=== PATIENT | female | born 1985 | race African-American/Black ===

== ENCOUNTER 2019-03-29 10:47 | Emergency (ER) | payer MEDICAID ==
[2019-03-29] MEDS ORDERED: DIPHENHYDRAMINE HCL 50 MG/ML VIAL IV ONE (13:17)
[2019-03-29] MEDS ORDERED: PROCHLORPERAZINE EDISYLATE INJ 10 MG/2 ML VIAL IV ONE (13:17)
[2019-03-29] MEDS ORDERED: KETOROLAC TROMETHAMINE INJ/PF 30 MG/1 ML SDV IV ONE (13:17)
--- NOTE | 2019-03-29 13:22 | ER Document Report ---
ED Medical Screen (RME) - General Chief Complaint: Headache Stated Complaint: HEADACHE Time Seen by Provider: 03/29/19 13:16 TRAVEL OUTSIDE OF THE [place] IN LAST 30 DAYS: No - HPI Notes: 03/29/19 13:22 Patient is a 33-year-old female with a history of tonic recurrent migraines and headaches who presents complaining of a headache that started 3 days ago near the left eye. Patient states that her eye started getting red at that time as well. She has had tearing associated and soreness. Patient states that this headache does resemble previous, but is not improving with her conservative measures. + light sensitivity. Pt feels as though there could be irritation to the eye itself. She does wear contacts, but has not been able to wear the one in her left eye for 3 days. Denies any fever, head injury, neck pain, changes in speech/mentation/hearing, URI, sore throat, chest pain, palpitations, syncope, cough, shortness of breath, wheeze, dyspnea, abdominal pain, vomiting/diarrhea, urinary retention, dysuria, hematuria, loss of control of bowel or bladder, numbness/tingling, saddle anesthesia, muscle paralysis/weakness, or rash. I have treated and performed a rapid initial assessment of this patient. A comprehensive ED assessment and evaluation of the patient, analysis of test results and completion of medical decision making process will be conducted by additional ED providers. PHYSICAL EXAMINATION: GENERAL: Well-appearing, well-nourished and in no acute distress. A&Ox4. Answers questions appropriately. Vitals: HR 80 during exam, not sure why reported at 124 initially. Left eye: injected. PERRLA, EOMI b/l. + tearing. LUNGS: Breath sounds clear to auscultation bilaterally and equal. No wheezes rales or rhonchi. HEART: Regular rate and rhythm without murmurs, rubs, gallops. Extremities: No cyanosis, clubbing, or edema b/l. NEUROLOGICAL: Normal speech, normal gait. Cranial nerves grossly intact. PSYCH: Normal mood, normal affect. - Related Data Allergies/Adverse Reactions: No Known Allergies Allergy (Verified 03/29/19 10:49) Past Medical History - Past Medical History Cardiac Medical History: Reports: Hx Hypertension - no tx, Hx Pulmonary Embolism - Immunizations Immunizations up to date: No Hx Diphtheria, Pertussis, Tetanus Vaccination: Yes Physical Exam - Vital signs Vitals: Temp Pulse Resp BP Pulse Ox 98.8 F 129 H 16 180/117 H 99 03/29/19 10:51 03/29/19 10:51 03/29/19 10:51 03/29/19 10:51 03/29/19 10:51 Course - Vital Signs Vital signs: Temp Pulse Resp BP Pulse Ox 98.8 F 129 H 16 180/117 H 99 03/29/19 10:51 03/29/19 10:51 03/29/19 10:51 03/29/19 10:51 03/29/19 10:51
[2019-03-29] MEDS ORDERED: TETRACAINE HCL 0.5% OPH SOLN 4 ML OS ONE (13:26)
[2019-03-29] MEDS ORDERED: CLONIDINE HCL 0.1 MG TABLET PO ONE (13:26)
--- NOTE | 2019-03-29 16:00 | ER Document Report ---
ED Headache - General Chief Complaint: Headache Stated Complaint: HEADACHE Time Seen by Provider: 03/29/19 13:16 Primary Care Provider: VIVEK SPANN DO [ACTIVE STAFF] - Follow up as needed Notes: Patient is a 33-year-old female with a history of migraines who presents to the emergency department with a chief complaint of headache. Patient states that about 3 days ago she did develop a migraine. Patient states that the pain was located in the back of her left eye. Patient states it did feel similar to her previous migraines although the BC powder and Ibuprofen treatment at home was not helping. Reports nausea but has not had any vomiting. Patient states having sensitivity in both eyes. Patient states she does wear nonprescription contacts in both eyes. Patient states that around the time of the migraine that she did also feel like something was in her left eye. Patient states she has been able to wear the contact in the left eye due to redness, excessive tearing, severe pain and no swelling to the left eye. She has continued to wear the contact in the right eye and reports drainage from both. TRAVEL OUTSIDE OF THE [place] IN LAST 30 DAYS: No - Related Data Allergies/Adverse Reactions: No Known Allergies Allergy (Verified 03/29/19 10:49) Past Medical History - General Information source: Patient - Social History Smoking Status: Unknown if Ever Smoked Cigarette use (# per day): No Chew tobacco use (# tins/day): No Frequency of alcohol use: None Drug Abuse: None Family History: Reviewed & Not Pertinent, Hypertension - states has been told her blood pressure was high in the past - has not been placed on medications Patient has suicidal ideation: No Patient has homicidal ideation: No - Past Medical History Cardiac Medical History: Reports: Hx Hypertension - no tx, Hx Pulmonary Embolism Pulmonary Medical History: Reports: None EENT Medical History: Reports: None Neurological Medical History: Reports: Hx Migraine Endocrine Medical History: Reports: None Renal/ Medical History: Reports: None. Denies: Hx Peritoneal Dialysis Malignancy Medical History: Reports: None GI Medical History: Reports: None Musculoskeletal Medical History: Reports None Skin Medical History: Reports None Psychiatric Medical History: Reports: None Traumatic Medical History: Reports: None Infectious Medical History: Reports: None Surgical Hx: Negative - Immunizations Immunizations up to date: No Hx Diphtheria, Pertussis, Tetanus Vaccination: Yes Review of Systems - Review of Systems Constitutional: No symptoms reported EENT: See HPI Cardiovascular: No symptoms reported Respiratory: No symptoms reported Gastrointestinal: See HPI Genitourinary: No symptoms reported Female Genitourinary: No symptoms reported Musculoskeletal: No symptoms reported Skin: No symptoms reported Hematologic/Lymphatic: No symptoms reported Neurological/Psychological: See HPI Physical Exam - Vital signs Vitals: Temp Pulse Resp BP Pulse Ox 98.8 F 129 H 16 180/117 H 99 03/29/19 10:51 03/29/19 10:51 03/29/19 10:51 03/29/19 10:51 03/29/19 10:51 Interpretation: Hypertensive - Notes Notes: GENERAL: Well-appearing, well-nourished and in no acute distress. HEAD: Atraumatic, normocephalic. EYES: Pupils equal round and reactive to light 2 mm bilaterally, no opacities noted with penlight, positive injection bilaterally, no fluorescein uptake, no hyphema, no ciliary flush, extraocular movements intact, sclera reddened, conjunctiva are reddened. Clear tears noted bilaterally. Left eye pressure 30/35 with 95% confidence. Right eye pressure 24/25 with 95% components. ENT: TMs normal, nares patent, oropharynx clear without exudates. Moist mucous membranes. NECK: Normal range of motion, supple without lymphadenopathy or JVD. LUNGS: Breath sounds clear to auscultation bilaterally and equal. No wheezes rales or rhonchi. HEART: Regular rate and rhythm without murmurs, rubs or gallops. ABDOMEN: Soft, nontender, normoactive bowel sounds. No guarding, no rebound. No masses appreciated. BACK: No cervical, thoracic, lumbar midline tenderness. No saddle anesthesia, normal distal neurovascular exam. GENITOURINARY: Deferred. EXTREMITIES: Normal range of motion, no pitting or edema. No clubbing or cyanosis. NEUROLOGICAL: Cranial nerves II through XII grossly intact. Normal speech, normal gait. PSYCH: Normal mood, normal affect. SKIN: Warm, Dry, normal turgor, no rashes or lesions noted. - HEENT Visual acuity- Right eye: 20/50 Visual acuity- Left eye: 24/40 Visual acuity- Both eyes: 20/40 Corrective lenses worn: Yes - done with sunglasses pt said the room was too bright Course - Re-evaluation Re-evalutation: Initially on examination patient had already received IV fluids and medications for her migraine. Patient states that her migraine headache is almost gone as it is a 1 out of 5. Patient continues to complain of left eye pain and tearing to the left eye. Patient denies pain to the right eye. Is alert and oriented and in no acute distress. I will perform an eye examination. Visual acuity had been performed in triage. Patient does have a contact lens in the right eye in which I told the patient to remove. Did inquire the patient about her past medical history. Patient states she has been told she had high blood pressure in the past but does not take medication. Patient states she does not see a primary care physician. 03/29/19 18:00 I did speak with Dr. Spann (electrophonic engineer ophthalmology) to explain patient's presentation and complaint of left eye pain. I did inform him that the left eye pressures were 30 and 35 with a 95% confidence level. Also informed him that the right eye had elevated pressures at 24 and 25 with a 95% confidence level. He states that he would like to see the patient in the office tomorrow and the patient's contact information was given to him. He states not to prescribe any medications as he is not sure what is going on. I also informed him of the visual acuity result. 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 I will provide her with the office and contact information. Patient verbalized understanding. Will return if worsening symptoms. - Vital Signs Vital signs: Temp Pulse Resp BP Pulse Ox 98.1 F 74 16 142/92 H 100 03/29/19 17:58 03/29/19 17:58 03/29/19 10:51 03/29/19 17:58 03/29/19 17:58 Discharge - Discharge Clinical Impression: Left eye pain Migraine Qualifiers: Migraine type: unspecified Status migrainosus presence: without status migrainosus Intractability: not intractable Qualified Code(s): G43.909 - Migraine, unspecified, not intractable, without status migrainosus Condition: Stable Disposition: HOME, SELF-CARE Additional Instructions: Today you were seen in the emergency department for migraine and left eye pain. We did treat your migraine headache and report feeling much better. The pressures in your eyes were elevated. The left eye was worse than the right. I did speak with Dr. Spann at [facility] who will call you tomorrow morning an appointment as he would like to see you tomorrow. At this time you do not need a prescription as we are unsure what is going on with your eye. Please return to the emergency department for worsening signs or symptoms to include decreased visual acuity, visual changes, severe headache, or any other concerning signs or symptoms. Do not wear contact lenses or put anything into the eye. Migraine Headache The physician feels that your symptoms are due to a migraine attack. Migraines are caused by changes in the blood vessels of the head. Arteries go into spasm, often causing warning symptoms that a headache may begin soon. As the spasm goes away, the vessels dilate and throb, causing the pounding pain of a migraine headache. Migraines often cause nausea and vomiting. The treatment of headaches varies with severity and cause of pain. Not all headaches need pain shots -- in fact, there is evidence that using narcotics for headaches may make them worse in the long run. The physician will determine the therapy that's in your best interest for this particular headache. Medications are available that may prevent migraines, or stop them as they first occur. If one medication is not helpful, try another. If migraines are frequent, be patient -- follow the doctor's recommendations. Call the physician if you are worsening, or if new symptoms arise. Forms: Elevated Blood Pressure, Return to Work Referrals: VIVEK SPANN, DO [ACTIVE STAFF] - Follow up as needed
[2019-03-29] MEDS ORDERED: TETRACAINE HCL 0.5% OPH SOLN 4 ML ONE (16:23)
[2019-03-29 17:59] VITALS: BP 142/92
== END 2019-03-29 18:35 | disposition home or self-care (01) ==
LOC: ER 10:47
DX: G43.909 Migraine, unspecified, not intractable, without status migrainosus (principal); R11.0 Nausea; H57.12 Ocular pain, left eye; I10 Essential (primary) hypertension
CPT/HCPCS: 99283; 96374; 96375; J3490; J1200; J0780

== ENCOUNTER 2019-09-11 00:27 | Emergency (ER) | payer MEDICAID ==
[2019-09-11] MEDS ORDERED: PENICILLIN V POTASSIUM 500 MG TABLET PO ONE (03:00)
[2019-09-11] MEDS ORDERED: HYDROCODONE/ACETAMINOPHEN 5-325 MG (6 TAB/ER DISP) PO PRN (03:00)
--- NOTE | 2019-09-11 03:02 | ER Document Report ---
HPI - HPI Time Seen by Provider: 09/11/19 02:38 Pain Level: 5 Context: Patient is a 34-year-old female that comes to the emergency department for chief complaint of dental pain. She states that she has had severe worsening pain over the past 2 days. She has a known fracture over the right lower posterior molar area. She states that she has started to have swelling on the right side of the face. She denies difficulty swallowing or breathing, fever, neck pain, or any other complaints. She has a dentist and is supposed to get extractions performed, this is 10 days away. - REPRODUCTIVE Reproductive: DENIES: : Past Medical History - General Information source: Patient - Social History Smoking Status: Never Smoker Frequency of alcohol use: None Drug Abuse: None Lives with: Family Family History: Reviewed & Not Pertinent, Hypertension - states has been told her blood pressure was high in the past - has not been placed on medications Patient has suicidal ideation: No Patient has homicidal ideation: No - Past Medical History Cardiac Medical History: Reports: Hx Hypertension - no tx, Hx Pulmonary Embolism Neurological Medical History: Reports: Hx Migraine Renal/ Medical History: Denies: Hx Peritoneal Dialysis - Immunizations Immunizations up to date: No Hx Diphtheria, Pertussis, Tetanus Vaccination: Yes Vertical Provider Document - CONSTITUTIONAL General Appearance: WD/WN. negative: No Apparent Distress - Patient appears mildly uncomfortable, holding her right jaw - INFECTION CONTROL TRAVEL OUTSIDE OF THE [place] IN LAST 30 DAYS: No - HEENT HEENT: Atraumatic, Normocephalic, PERRLA. negative: Conjuctival Injection, Pharyngeal Exudate, Pharyngeal Tenderness, Pharyngeal Erythema, Tympanic Membrane Red, Tympanic Membrane Bulging Mouth Diagram: 1 - Fractured molar with surrounding erythema and tenderness but no noted induration, fluctuance, or abscess. Unremarkable oropharyngeal exam otherwise - NECK Neck: Normal Inspection, Supple. negative: Lymphadenopathy-Left, Lymphadenopathy-Right - RESPIRATORY Respiratory: Breath Sounds Normal, No Respiratory Distress - CARDIOVASCULAR Cardiovascular: Regular Rate, Regular Rhythm - GI/ABDOMEN Gastrointestinal: Abdomen Soft, Abdomen Non-Tender - BACK Back: Normal Inspection - MUSCULOSKELETAL/EXTREMETIES Musculoskeletal/Extremeties: MAKEMAL, FROM, Non-Tender - NEURO Level of Consciousness: Awake, Alert, Appropriate Motor/Sensory: No Motor Deficit, No Sensory Deficit - DERM Integumentary: Warm, Dry, No Rash Course - Vital Signs Vital signs: Temp Pulse Resp BP Pulse Ox 98.6 F 100 20 153/98 H 99 09/11/19 00:41 09/11/19 00:41 09/11/19 00:41 09/11/19 00:41 09/11/19 00:41 Discharge - Discharge Clinical Impression: Pain, dental, Dental infection Condition: Stable Disposition: HOME, SELF-CARE Instructions: Oral Narcotic Medication ([facility]) Additional Instructions: Your evaluation is consistent with a dental infection. Take the antibiotics as prescribed to completion. Follow-up with your dentist for additional evaluation and management or this will continue to occur. Return for any concerning or worsening symptoms including increased swelling of the face. Prescriptions: Penicillin V Potassium [Penicillin Vk 500 mg Tablet] 500 mg PO BID #20 tablet Forms: Return to Work
[2019-09-11 03:26] VITALS: BP 177/107
== END 2019-09-11 03:21 | disposition home or self-care (01) ==
LOC: ER 00:27
DX: K08.89 Other specified disorders of teeth and supporting structures (principal); K04.7 Periapical abscess without sinus; S02.5XXA Fracture of tooth (traumatic), initial encounter for closed fracture; X58.XXXA Exposure to other specified factors, initial encounter; I10 Essential (primary) hypertension
CPT/HCPCS: 99282; J3490

== ENCOUNTER 2020-03-15 10:25 | Emergency (ER) | payer MEDICAID ==
[2020-03-15 10:56] LABS: APPEARANCE,URINE CLEAR; BILIRUBIN,URINE NEGATIVE (NEGATIVE); COLOR,URINE YELLOW; GLUCOSE, URINE NEGATIVE (NEGATIVE); KETONES,URINE NEGATIVE (NEGATIVE); LEUKOCYTE ESTERASE,URINE TRACE (NEGATIVE); NITRITE,URINE NEGATIVE (NEGATIVE); PROTEIN,URINE NEGATIVE (NEGATIVE); URINE SPECIFIC GRAVITY 1.004; UROBILINOGEN,URINE NEGATIVE mg/dL (<2.0)
[2020-03-15 11:03] LABS: ADD MANUAL MICROSCOPIC YES
[2020-03-15 11:04] LABS: RBC,URINE TOO NUMEROUS TO CNT /HPF
[2020-03-15] MEDS ORDERED: KETOROLAC TROMETHAMINE INJ/PF 30 MG/1 ML SDV IV ONE (11:08)
[2020-03-15 11:28] LABS: ABSOLUTE EOSINOPHILS # (AUTO) 0.1 10^3/uL (0.0-0.6); ABSOLUTE LYMPHOCYTES (AUTO) 1.2 10^3/uL (0.5-4.7); ABSOLUTE MONOCYTES (AUTO) 0.6 10^3/uL (0.1-1.4); BASOPHILS % (AUTO) 0.4 % (0-2); EOSINOPHILS % (AUTO) 0.6 % (0-6); HEMATOCRIT 38.5 % (36.0-47.0); HEMOGLOBIN 12.7 g/dL (12.0-15.5); LYMPHOCYTES % (AUTO) 11.9 % (13-45); MEAN CORPUSCULAR HEMOGLOBIN 29.1 pg (27.0-33.4); MEAN CORPUSCULAR HGB CONC 33.1 g/dL (32.0-36.0); MEAN CORPUSCULAR VOLUME 88 fl (80-97); MONOCYTES % (AUTO) 5.9 % (3-13); PLATELET COUNT 276 10^3/uL (150-450); RED BLOOD COUNT 4.37 10^6/uL (3.72-5.28); RED CELL DISTRIBUTION WIDTH 16.5 % (11.5-14.0); SEGMENTED NEUTROPHILS % (AUTO) 81.2 % (42-78); TOTAL CELLS COUNTED % (AUTO) 100 %; WHITE BLOOD COUNT 9.8 10^3/uL (4.0-10.5)
[2020-03-15 11:30] LABS: ALBUMIN 4.5 g/dL (3.5-5.0); ALKALINE PHOSPHATASE 81 U/L (38-126); ANION GAP 9 (5-19); ASPARTATE AMINO TRANSFERASE 30 U/L (14-36); BILIRUBIN,TOTAL 0.6 mg/dL (0.2-1.3); BLOOD UREA NITROGEN 7 mg/dL (7-20); CALCIUM 9.7 mg/dL (8.4-10.2); CARBON DIOXIDE 27 mmol/L (22-30); CHLORIDE 101 mmol/L (98-107); GLUCOSE 97 mg/dL (75-110); POTASSIUM 3.7 mmol/L (3.6-5.0)
[2020-03-15] MEDS ORDERED: MORPHINE SULFATE 10 MG/ML INJ IV ONE (13:05)
--- NOTE | 2020-03-15 13:22 | RADIOLOGY REPORT (SQ) ---
EXAM DESCRIPTION: CTA CHEST IMAGES COMPLETED DATE/TIME: 03/15/2020 1:02 pm REASON FOR STUDY: cp/hx pe COMPARISON: CT of the chest with contrast from 12/27/2011. TECHNIQUE: CT scan of the chest performed using helical scanning technique with dynamic intravenous contrast injection. Images reviewed with lung, soft tissue and bone windows. Reconstructed coronal and sagittal MPR images reviewed. Additional 3 dimensional post-processing performed to develop Maximal Intensity Projection images (AK P). All images stored on PACS. All CT scanners at this facility use dose modulation, iterative reconstruction, and/or weight based d osing when appropriate to reduce radiation dose to as low as reasonably achievable (ALARA). [facility]: Dose Right [facility]: CareDose [facility]: Dose Right [facility]: Teradose 4D [facility]: Aeromot CONTRAST TYPE AND DOSE: 56 mL Omnipaque 350- low osmolar. Contrast bolus optimized for the pulmonary arteries. Not diagnostic for the aorta. RENAL FUNCTION: None required. The patient is less than 50 years old. RADIATION DOSE: CT Rad equipment meets quality standard of care and radiation dose reduction techniq ues were employed. CTDIvol: 6.6 - 14.3 mGy. DLP: 510 mGy-cm. LIMITATIONS: None. FINDINGS: LUNGS AND PLEURA: The trachea and main bronchi are patent. The subpleural curvilinear opa cities in the lower lobes are nonspecific. There is no consolidation, pleural effusion, bronchiectasi s, segmental mucus plugging, pneumothorax or greater than 6 mm pulmonary nodule. AORTA AND GREAT VESSELS: No aneurysm or dissection of the thoracic aorta. HEART: No cardiomegaly or pericardial effusion. PULMONARY ARTERIES: No pulmonary emboli. HILAR AND MEDIASTINAL STRUCTURES: No adenopathy or mass. HARDWARE: None in the chest. 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 THYROID AND OTHER SOFT TISSUES: No mass or adenopathy. BONES: No fracture or osseous lesion. 3D MIPS: Confirm above findings. OTHER: No other finding. IMPRESSION: No pulmonary emboli. COMMENT: Quality ID # [id number]: Final reports with documentation of one or more dose reduction techniques (e.g., Automated exposure control, adjustment of the mA and/or kV according to patient size, use of iterative reconstruction technique) TECHNICAL DOCUMENTATION: JOB ID: [id number] 2010 [employer]- All Rights Reserved Reading location - IP/workstation name: [email or web address]
--- NOTE | 2020-03-15 14:15 | ER Document Report ---
ED General - General Chief Complaint: left flank Stated Complaint: BACK PAIN Time Seen by Provider: 03/15/20 10:57 Mode of Arrival: Ambulatory Information source: Patient TRAVEL OUTSIDE OF THE [place] IN LAST 30 DAYS: No - HPI Notes: Patient presents with left flank pain. She states she has had this pain for about 3 days. She states that it does feel similar to when she has had a previous blood clot. She states the pain is intermittent and sharp. It is moderate to severe. Nothing makes it better or worse. It does radiate across her back and her back. She denies any known exposures to coronavirus. She has had a mild dry cough. She has had some shortness of breath. No fever sweats or chills. No problems with urination. No vomiting or diarrhea. - Related Data Allergies/Adverse Reactions: No Known Allergies Allergy (Verified 09/11/19 00:29) Past Medical History - General Information source: Patient - Social History Smoking Status: Current Every Day Smoker Frequency of alcohol use: Heavy Drug Abuse: None Family History: Reviewed & Not Pertinent, Hypertension - states has been told her blood pressure was high in the past - has not been placed on medications Patient has homicidal ideation: No - Past Medical History Cardiac Medical History: Reports: Hx Hypertension, Hx Pulmonary Embolism Neurological Medical History: Reports: Hx Migraine Renal/ Medical History: Denies: Hx Peritoneal Dialysis Past Surgical History: Reports: Hx Section, Hx Oral Surgery - right jaw - Immunizations Immunizations up to date: No Hx Diphtheria, Pertussis, Tetanus Vaccination: Yes Review of Systems - Review of Systems Constitutional: denies: Chills, Fever Cardiovascular: denies: Chest pain, Palpitations Respiratory: Cough, Short of breath -: Yes All other systems reviewed and negative Physical Exam - Vital signs Vitals: Temp Pulse Resp BP Pulse Ox 99.2 F 104 H 16 136/85 H 100 03/15/20 10:35 03/15/20 10:35 03/15/20 10:35 03/15/20 10:35 03/15/20 10:35 Interpretation: Normal - General General appearance: Appears well, Alert - HEENT Head: Normocephalic, Atraumatic Eyes: Normal Pupils: PERRL - Respiratory Respiratory status: No respiratory distress Chest status: Nontender Breath sounds: Normal Chest palpation: Normal - Cardiovascular Rhythm: Regular Heart sounds: Normal auscultation Murmur: No - Abdominal Inspection: Normal Distension: No distension Bowel sounds: Normal Tenderness: Nontender Organomegaly: No organomegaly - Back Back: Normal, Tender - Left flank - Extremities General upper extremity: Normal inspection, Nontender, Normal color, Normal ROM, Normal temperature General lower extremity: Normal inspection, Nontender, Normal color, Normal ROM, Normal temperature, Normal weight bearing. No: Corbin's sign - Neurological Neuro grossly intact: Yes Cognition: Normal Orientation: AAOx4 [place] Coma Scale Eye Opening: Spontaneous [place] Coma Scale Verbal: Oriented [place] Coma Scale Motor: Obeys Commands [place] Coma Scale Total: 15 Speech: Normal Motor strength normal: LUE, RUE, LLE, RLE Sensory: Normal - Psychological Associated symptoms: Normal affect, Normal mood - Skin Skin Temperature: Warm Skin Moisture: Dry Skin Color: Normal Course - Re-evaluation Re-evalutation: 03/15/20 14:14 Patient presents with complaints of left flank pain and some shortness of breath. She states it feels similar to when she had a previous pulmonary embolism. CT scan showed no evidence of any type of infection or pulmonary embolism. She does have blood in her urine but she is on her period. She does have an equivocal urine and I will send the patient home on antibiotics and pain medication. - Vital Signs Vital signs: Temp Pulse Resp BP Pulse Ox 99.2 F 104 H 16 136/85 H 100 03/15/20 10:40 03/15/20 10:35 03/15/20 10:35 03/15/20 10:35 03/15/20 10:35 - Laboratory Result Diagrams: 03/15/20 10:55 03/15/20 10:55 Laboratory results interpreted by me: 03/15/20 03/15/20 03/15/20 10:40 10:55 10:55 RDW 16.5 H Lymph % (Auto) 11.9 L Seg Neutrophils % 81.2 H Sodium 136.9 L Urine Blood LARGE H Ur Leukocyte Esterase TRACE H - Diagnostic Test Radiology reviewed: Image reviewed, Reports reviewed - EKG Interpretation by Me EKG shows normal: Sinus rhythm Rate: Normal - 88 Rhythm: NSR [place]/QRS: No: Right axis deviation, Left axis deviation Discharge - Discharge Clinical Impression: Left flank pain Condition: Stable Disposition: HOME, SELF-CARE Instructions: Oral Narcotic Medication ([facility]), Dyspnea, Nonspecific ([facility]) Prescriptions: Nitrofurantoin Monohyd/M-Cryst [Macrobid 100 mg Capsule] 100 mg PO BID 5 Days #10 cap Hydrocodone/Acetaminophen [[place] 5-325 mg Tablet] 1 tab PO Q6 PRN 3 Days #12 tablet PRN Reason: Forms: Return to Work Referrals: [facility] [Provider Group] - Follow up as needed
[2020-03-15 15:51] VITALS: BP 126/80
--- NOTE | 2020-03-16 08:06 | EKG REPORT ---
SEVERITY:- NORMAL ECG - SINUS RHYTHM : Confirmed by: Marnie Jenkins MD 16-Mar-2020 08:05:44
== END 2020-03-15 15:50 | disposition home or self-care (01) ==
LOC: ER 10:25
DX: R10.9 Unspecified abdominal pain (principal); M54.9 Dorsalgia, unspecified; R05 Cough; R06.02 Shortness of breath; F17.200 Nicotine dependence, unspecified, uncomplicated; I10 Essential (primary) hypertension; Z86.711 Personal history of pulmonary embolism
CPT/HCPCS: 93005; 99284; 96374; 96375; 36415; 85025; 81025; 80053; 81001; 84484; 71275; 93010; J1885; J2270